=== PATIENT | male | born 1985 ===

== ENCOUNTER 2021-04-05 11:11 | Observation (INO) | payer SELFPAY ==
[2021-04-05 11:54] LABS: #Eosinphils 0.1 thou/uL (0.0-0.7); #Lymphocytes 1.1 thou/uL (1.20-3.40); #Monocytes 0.5 thou/uL (0.11-0.59); #Neutrophils 5.3 thou/uL (1.40-6.50); %Basophils 0.4 % (0.0-1.0); %Lymphocytes 15.2 % (21.0-51.0); %Monocytes 7.6 % (0.0-10.0); %Neutrophils 75.8 % (42.0-75.0); Hemoglobin 14.2 g/dL (14.0-18.0); Mean Corpuscular HGB CONC 33.6 g/dL (32.0-36.0); Mean Corpuscular Hemoglobin 32.9 pg (27.0-31.0); Mean Corpuscular Volume 97.9 fL (78.0-98.0); Mean Platelet Volume 8.2 fL (7.4-10.4); Platelet Count 189 thou/uL (130-400); Red Blood Cell (RBC) Count 4.31 mill/uL (4.70-6.10)
[2021-04-05 12:14] LABS: ALT (SGPT) 240 U/L (8-55); AST (SGOT) 232 U/L (5-34); Albumin 3.9 g/dL (3.5-5.0); Alkaline Phosphatase 126 U/L (40-110); Anion Gap 11 mmol/L (10-20); BUN (Urea Nitrogen) 11 mg/dL (8.9-20.6); Bilirubin, Total 1.2 mg/dL (0.2-1.2); Calc. Creatinine Clearance 0 mL/min (70-130); Calcium 9.3 mg/dL (7.8-10.44); Carbon Dioxide 29 mmol/L (22-29); Chloride 104 mmol/L (98-107); Globulin 2.6 g/dL (2.4-3.5); Glucose 91 mg/dL (70-105); Lipase 81 U/L (8-78); Potassium 4.2 mmol/L (3.5-5.1); Protein, Total 6.5 g/dL (6.0-8.3); Sodium 140 mmol/L (136-145)
[2021-04-05] MEDS ORDERED: Ondansetron PF 4 MG/2 ML Vial ONE (14:33)
[2021-04-05] MEDS ORDERED: Morphine 4 MG/ML VIAL ONE (14:33)
[2021-04-05 14:47] LABS: Bilirubin Negative (Negative); Blood, Urine Negative (Negative); Glucose, Urine (Dipstick) Normal (Negative); Ketone, Urine Negative (Negative); Leukocyte Negative Leu/uL (Negative); Nitrite Negative (Negative); Protein, Urine (Dipstick) 20 mg/dL (Neg-Trace); Specific Gravity, Urine 1.015 (1.002-1.036); Urobilinogen Normal mg/dL (Less than 2); pH, Urine 8.5 (5.0-9.0)
[2021-04-05 14:49] LABS: Clarity Hazy (Clear)
[2021-04-05 16:15] LABS: SARS-CoV-2 NAA Rapid Test Not Detected (NotDetected)
[2021-04-05] MEDS ORDERED: Piperacillin/Tazobactam 3.375 GM VIAL ONE (16:21)
[2021-04-05] MEDS ORDERED: Ondansetron PF 4 MG/2 ML Vial IVP PRN (16:34)
[2021-04-05] MEDS ORDERED: Acetaminophen 325 MG TAB PO PRN (16:34)
[2021-04-05] MEDS ORDERED: Ibuprofen 200 MG TAB PO PRN (16:39)
[2021-04-05 21:31] VITALS: BMI 26.9
[2021-04-05] MEDS: Famotidine 20 MG TAB PO SCH (21:59)
[2021-04-05] MEDS: traMADol HCl 50 MG TAB PO PRN (21:59)
[2021-04-05] MEDS ORDERED: Sodium Chloride 0.9% 1,000 ML IV SCH (23:00)
[2021-04-06 05:05] VITALS: BP 129/66; TEMP 97.8
[2021-04-06 06:36] LABS: #Basophils 0.1 thou/uL (0.0-0.2); #Eosinphils 0.1 thou/uL (0.0-0.7); #Lymphocytes 1.9 thou/uL (1.20-3.40); #Monocytes 0.3 thou/uL (0.11-0.59); #Neutrophils 1.7 thou/uL (1.40-6.50); %Basophils 1.5 % (0.0-1.0); %Eosinophils 2.9 % (0.0-10.0); %Lymphocytes 46.8 % (21.0-51.0); %Monocytes 7.8 % (0.0-10.0); %Neutrophils 41.1 % (42.0-75.0); Hemoglobin 13.8 g/dL (14.0-18.0); Mean Corpuscular HGB CONC 32.4 g/dL (32.0-36.0); Mean Corpuscular Hemoglobin 32.1 pg (27.0-31.0); Mean Platelet Volume 8.7 fL (7.4-10.4); Platelet Count 165 thou/uL (130-400); RBC Distribution Width 12.3 % (11.5-14.5); Red Blood Cell (RBC) Count 4.29 mill/uL (4.70-6.10); White Blood Cell (WBC) Count 4.1 thou/uL (4.8-10.8)
[2021-04-06 06:48] LABS: INR-International Normal Ratio 0.9; PTT 33.7 sec (22.9-36.1); Prothrombin Time 12.6 sec (12.0-14.7)
[2021-04-06 06:54] LABS: ALT (SGPT) 375 U/L (8-55); AST (SGOT) 192 U/L (5-34); Albumin 3.7 g/dL (3.5-5.0); Alkaline Phosphatase 114 U/L (40-110); Anion Gap 8 mmol/L (10-20); BUN (Urea Nitrogen) 8 mg/dL (8.9-20.6); Bilirubin, Direct 0.6 mg/dL (0.1-0.3); Bilirubin, Total 1.2 mg/dL (0.2-1.2); Calc. Creatinine Clearance 138 mL/min (70-130); Calcium 8.6 mg/dL (7.8-10.44); Carbon Dioxide 27 mmol/L (22-29); Chloride 107 mmol/L (98-107); Glucose 89 mg/dL (70-105); Potassium 4.1 mmol/L (3.5-5.1); Sodium 138 mmol/L (136-145)
[2021-04-06 06:55] LABS: Phosphorus 2.6 mg/dL (2.3-4.7)
[2021-04-06] MEDS ORDERED: Midazolam HCl 2 mg/2 ml Vial ONE ×2 (07:57→08:11)
[2021-04-06] MEDS ORDERED: Iothalamate Meglumine 60% 50 ML VIAL FS ONE (08:10)
[2021-04-06] MEDS ORDERED: Bupivacaine 0.25% HCL 30 ML VIAL ONE (08:10)
[2021-04-06] MEDS ORDERED: Xylocaine 1% w/ Epi 1:100K 10 ML VIAL ONE (08:10)
[2021-04-06] MEDS ORDERED: Fentanyl 100 MCG/2 ML VIAL ONE ×3 (08:11→11:39)
[2021-04-06] MEDS ORDERED: ceFAZolin 2 GM/Dextrose 50 ML IVPB ONE (08:29)
[2021-04-06 08:30] LABS: Lipase 123 U/L (8-78)
[2021-04-06] MEDS ORDERED: Glycopyrrolate 0.2 MG/ML 5 ML SYRINGE ONE (08:43)
[2021-04-06] MEDS ORDERED: PHENYLEPHRINE-NS 100 MCG/ML 10 ML SYRINGE ONE (08:43)
[2021-04-06] MEDS ORDERED: Rocuronium Bromide 10 MG/ML (10ML VIAL) ONE (08:43)
[2021-04-06] MEDS ORDERED: Lidocaine 1% PF 5 ML VIAL ONE (08:43)
[2021-04-06] MEDS ORDERED: Ketorolac Tromethamine 30 MG/ML VIAL ONE (08:43)
[2021-04-06] MEDS ORDERED: Albuterol Sulfate HFA (OR ONLY) ONE (08:43)
[2021-04-06] MEDS ORDERED: Dexamethasone 20 MG/5 ML VIAL ONE (08:43)
[2021-04-06] MEDS ORDERED: Ondansetron PF 4 MG/2 ML Vial ONE (08:43)
[2021-04-06] MEDS ORDERED: PROPOFOL 200 MG/20 ML VIAL ONE (08:43)
[2021-04-06] MEDS ORDERED: ePHEDrine 50 MG/ML VIAL ONE (08:43)
[2021-04-06] MEDS ORDERED: FLU VACC QS2021-22(6MOS UP)/PF 60 MCG/0.5 ML SYRINGE IM ONE (09:00)
[2021-04-06] MEDS ORDERED: traMADol HCl 50 MG TAB PO PRN (10:28)
[2021-04-06] MEDS ORDERED: Morphine 4 MG/ML VIAL ONE ×2 (11:08→11:39)
[2021-04-06] MEDS ORDERED: Promethazine HCl 25 MG/ML VIAL ONE (11:11)
[2021-04-06] MEDS: Famotidine 20 MG TAB PO SCH (12:33)
[2021-04-06] MEDS: traMADol HCl 50 MG TAB PO PRN (13:43)
== END 2021-04-06 16:03 | disposition home or self-care (01) ==
LOC: ERS 11:11 → ERHOLD 15:34 → SJJU 18:11
PROVIDERS: ADMIT Surgery; ATTEND Surgery
PROC: 0FT44ZZ Resection of Gallbladder, Percutaneous Endoscopic Approach (ICD-10-PCS; principal; 2021-04-06)
PROC: BF101ZZ Fluoroscopy of Bile Ducts using Low Osmolar Contrast (ICD-10-PCS; 2021-04-06)
DX: K80.12 Calculus of gallbladder with acute and chronic cholecystitis without obstruction (principal); K66.0 Peritoneal adhesions (postprocedural) (postinfection); F17.210 Nicotine dependence, cigarettes, uncomplicated; Z88.6 Allergy status to analgesic agent; Z20.822 Contact with and (suspected) exposure to COVID-19
CPT/HCPCS: 36415; 47532; 76705; 80048; 80053; 80076; 81003; 83690; 83735; 84100; 85025; 85610; 85730; 86850; 86900; 86901; 88304; 90471; 90686; C1713; G0008; G0378; J0690; J1100; J1885; J2250; J2270; J2405; J2543; J2550; J2704; J3010; J3490; J7050; Q9961-U8; S0020; U0002